=== PATIENT | female | born 1995 ===

== ENCOUNTER 2024-06-17 15:15 | Outpatient (CLI) | payer OTHER ==
--- NOTE | 2024-06-19 11:58 | Ultrasound Report ---
PROCEDURE: Pelvic w/Transvaginal INDICATIONS: ENCOUNTER FOR TEST, NEGATIVE TECHNIQUE: Transabdominal/transvaginal ultrasound of the pelvis was obtained. Endovaginal scanning wa s necessary due to incomplete visualization of the adnexal and endometrial structures by transabdomin al scanning. COMPARISON: None. FINDINGS: Uterine size: Uterus measures 7.9 x 3.9 x 4.3 cm, and is anteverted. Myometrium: The myometrium is homogeneous. Endometrium: The endometrium measures 1.9 mm in combined thickness. Right ovary: The right ovary measures 5.1 x 1.9 x 4.0 cm. Calculated ovarian volume 20.3 cc. Domin ant 1.8 cm follicle/simple cyst. Greater than 12 follicles noted Left ovary: The left ovary measures 4.2 x 2.1 x 2.7 cm. Calculated ovarian volume 4.5 cc. Greater t wells 12 follicles noted Other: No pathologic free abdominal or pelvic fluid. IMPRESSION: Greater than 12 follicles noted in each ovary. This finding has been correlated with polycystic ovari an syndrome in the proper clinical setting Reviewed by: Osmin Loera MD on 06/19/2024 10:57 AM [facility] Approved by: Osmin Loera MD on 06/19/2024 10:57 AM [facility] Station ID: [id number]
== END 2024-06-17 15:16 | disposition home or self-care (01) ==
LOC: DI 15:15
PROVIDERS: ATTEND Nurse Practitioner Family
DX: Z32.02 Encounter for pregnancy test, result negative (principal)